=== PATIENT | female | born 1940 | race Caucasian/White ===

== ENCOUNTER 2016-08-29 18:40 | Emergency (ER) | payer OTHER ==
[~2016-08-29] VITALS: Ht 157.5 cm; Wt 96.7 kg
[~2016-08-29 18:40] MED LIST: ADVAIR 250/501 DISK IH; ADVIL,NUPRIN,M200 MG PO; Amoxicillin PO; B6 PO; CARAFATE1 GM PO; CARDIZEM CD,CA240 MG PO; CEFUROXIME250 MG PO; DICYCLOMINE HCL20 MG PO; LEVAQUIN750 MG PO; LEVOTHYROXINE; LEVOTHYROXINE50 MCG PO; LEXAPRO10 MG PO; LIPITOR40 MG PO; LOVASTATIN40 MG PO; Levothroid,Synthroid PO; MOTRIN800 MG PO; PREDNISONE10 MG PO; PRESERVISIO1 CAPSULE PO; PRESERVISION S1 EACH PO; PRESERVISION T1 EACH PO; PRILOSEC20 MG PO; PROTONIX40 MG PO; PYRIDOXINE,VIT100 MG PO; Preservision AREDS S PO; SPECTRAVITE SE1 EACH PO; SYMBICORT60 INHALAT IH; VALSARTAN80 MG PO; VENTOLIN HFA18 GM IH; Zocor PO; [UNRECOGNIZED DRUG - OTHER] PO
[2016-08-29 20:14] LABS: HEMATOCRIT 41.4 % (36.0-46.0); MCH 30.9 PG (29.0-34.0); MCHC 33.3 G/DL (30.0-36.0); MCV 92.6 FL (83-99); MEAN PLAT.VOLUME 9.6 uM^3 (9.5-12.4); PLATELET COUNT 184 K/uL (156-360); RBC DIS.WIDTH-CV 13.3 % (11.8-14.6); RED BLOOD COUNT 4.47 M/uL (3.80-5.20); WHITE BLOOD COUNT 8.1 K/uL (4.1-10.2)
[2016-08-29 20:39] LABS: CHLORIDE 107 mEq/L (99-109); POTASSIUM 4.7 mEq/L (3.7-5.4); SODIUM 140 mEq/L (136-147)
[2016-08-29 20:40] LABS: GLUCOSE 114 mg/dL (70-99)
[2016-08-29 20:42] LABS: ANION GAP 6 MEQ/L (2-14)
[2016-08-29 20:44] LABS: GFR ESTIMATE (CALCULATED) > 59 mL/min/
[2016-08-29 20:45] LABS: UREA NITROGEN (BUN) 21 mg/dL (9-23)
[2016-08-29] MEDS ORDERED: VICODIN 5-3001 EACH PO (21:18)
[2016-08-29] MEDS ORDERED: KEFLEX500 MG PO (21:18)
[2016-08-29] MEDS ORDERED: NORCO 5/3251 TABLET PO (21:20)
[2016-08-29 21:32] VITALS: BP 155/97
== END 2016-08-29 21:32 | disposition home or self-care (01) ==
LOC: EME 18:40
PROVIDERS: Emergency Medicine
DX: R04.0 Epistaxis (principal); J45.909 Unspecified asthma, uncomplicated; E78.5 Hyperlipidemia, unspecified; I10 Essential (primary) hypertension; K21.9 Gastro-esophageal reflux disease without esophagitis; E03.9 Hypothyroidism, unspecified; Z87.442 Personal history of urinary calculi; Z96.653 Presence of artificial knee joint, bilateral; Z87.891 Personal history of nicotine dependence
CPT/HCPCS: 80048; 85027; 86850; 86900; 86901; 99281; 99284

== ENCOUNTER 2016-10-03 04:36 | Emergency (ER) | payer OTHER ==
[~2016-10-03] VITALS: Ht 157.5 cm; Wt 98.5 kg
[~2016-10-03 04:36] MED LIST changes: +KEFLEX500 MG PO; +NORCO 5/3251 TABLET PO; +VICODIN 5-3001 EACH PO
[2016-10-03 05:09] LABS: HEMATOCRIT 42.2 % (36.0-46.0); MCH 30.9 PG (29.0-34.0); MCHC 33.4 G/DL (30.0-36.0); MCV 92.5 FL (83-99); MEAN PLAT.VOLUME 9.3 uM^3 (9.5-12.4); PLATELET COUNT 169 K/uL (156-360); RBC DIS.WIDTH-CV 13.3 % (11.8-14.6); RBC DIS.WIDTH-SD 43.6 % (39-53); RED BLOOD COUNT 4.56 M/uL (3.80-5.20)
[2016-10-03] MEDS ORDERED: AMOXICILLIN500 MG PO (05:28)
[2016-10-03 06:03] VITALS: BP 142/85
== END 2016-10-03 06:06 | disposition home or self-care (01) ==
LOC: EME 04:36
PROVIDERS: Physician Assistant
PROC: 2Y41X5Z Packing of Nasal Region using Packing Material (ICD-10-PCS; principal; 2016-10-03)
DX: R04.0 Epistaxis (principal); J45.909 Unspecified asthma, uncomplicated; E78.5 Hyperlipidemia, unspecified; I10 Essential (primary) hypertension; K21.9 Gastro-esophageal reflux disease without esophagitis; Z87.442 Personal history of urinary calculi; E03.9 Hypothyroidism, unspecified; Z96.653 Presence of artificial knee joint, bilateral; Z87.891 Personal history of nicotine dependence
CPT/HCPCS: 85027; 99281; 99284

== ENCOUNTER 2016-10-07 14:15 | Emergency (ER) | payer OTHER ==
[~2016-10-07] VITALS: Ht 157.5 cm; Wt 97.0 kg
[~2016-10-07 14:15] MED LIST changes: +AMOXICILLIN500 MG PO
[2016-10-07 15:16] LABS: HEMATOCRIT 42.4 % (36.0-46.0); MCH 30.8 PG (29.0-34.0); MCHC 32.8 G/DL (30.0-36.0); MCV 93.8 FL (83-99); MEAN PLAT.VOLUME 9.4 uM^3 (9.5-12.4); PLATELET COUNT 197 K/uL (156-360); RBC DIS.WIDTH-CV 13.2 % (11.8-14.6); RBC DIS.WIDTH-SD 45.2 % (39-53); RED BLOOD COUNT 4.52 M/uL (3.80-5.20); WHITE BLOOD COUNT 9.3 K/uL (4.1-10.2)
[2016-10-07 15:31] LABS: CHLORIDE 107 mEq/L (99-109); POTASSIUM 4.3 mEq/L (3.7-5.4); SODIUM 142 mEq/L (136-147)
[2016-10-07 15:32] LABS: GLUCOSE 125 mg/dL (70-99)
[2016-10-07 15:34] LABS: ANION GAP 10 MEQ/L (2-14)
[2016-10-07 15:36] LABS: GFR ESTIMATE (CALCULATED) > 59 mL/min/
[2016-10-07 15:37] LABS: UREA NITROGEN (BUN) 22 mg/dL (9-23)
[2016-10-07 15:39] LABS: TROP-I INTERPRETATION NEGATIVE; TROPONIN-I < 0.01 ng/mL (0.0-0.30)
[2016-10-07 17:50] LABS: TROP-I INTERPRETATION NEGATIVE; TROPONIN-I < 0.01 ng/mL (0.0-0.30)
[2016-10-07 18:51] VITALS: BP 140/96
== END 2016-10-07 18:53 | disposition home or self-care (01) ==
LOC: EME → EDBD 14:15 → EDSEX 14:15 → EME 14:15
PROVIDERS: Emergency Medicine
DX: R07.9 Chest pain, unspecified (principal); R53.83 Other fatigue; Z77.22 Contact with and (suspected) exposure to environmental tobacco smoke (acute) (chronic); Z82.49 Family history of ischemic heart disease and other diseases of the circulatory system; I10 Essential (primary) hypertension; E78.5 Hyperlipidemia, unspecified; E03.9 Hypothyroidism, unspecified; J45.909 Unspecified asthma, uncomplicated; Z87.891 Personal history of nicotine dependence
CPT/HCPCS: 71020; 80048; 84484; 85027; 93005; 99281; 99285

== ENCOUNTER 2017-03-07 13:45 | Emergency (ER) | payer OTHER ==
[~2017-03-07] VITALS: Ht 157.5 cm; Wt 105.4 kg
[2017-03-07] MEDS ORDERED: HYDROCHLOROTHIA25 MG PO (14:40)
[2017-03-07] MEDS ORDERED: VALSARTAN160 MG PO (14:40)
[2017-03-07] MEDS ORDERED: ATORVASTATIN CA40 MG PO (14:41)
[2017-03-07] MEDS ORDERED: PREDNISONE1 MG PO (14:42)
[2017-03-07 16:56] VITALS: BP 134/76
== END 2017-03-07 16:57 | disposition home or self-care (01) ==
LOC: EME 13:45
DX: M16.0 Bilateral primary osteoarthritis of hip (principal); K21.9 Gastro-esophageal reflux disease without esophagitis; I10 Essential (primary) hypertension; E78.5 Hyperlipidemia, unspecified; J45.909 Unspecified asthma, uncomplicated; Z96.653 Presence of artificial knee joint, bilateral; Z87.442 Personal history of urinary calculi; Z87.891 Personal history of nicotine dependence
CPT/HCPCS: 73502; 99281; 99284

== ENCOUNTER 2017-08-03 11:04 | Emergency (ER) | payer OTHER ==
[~2017-08-03] VITALS: Ht 157.5 cm; Wt 106.3 kg
[~2017-08-03 11:04] MED LIST changes: +ATORVASTATIN CA40 MG PO; +HYDROCHLOROTHIA25 MG PO; +PREDNISONE1 MG PO; +VALSARTAN160 MG PO
[2017-08-03 12:42] LABS: BASOPHIL (%) 0.3 % (0-1); EOSINOPHIL COUNT 0.1 K/uL (0-0.3); HEMATOCRIT 40.7 % (36.0-46.0); HEMOGLOBIN 13.8 G/DL (11.9-15.5); IMMATURE GRANULOCYTE (%) 0.3 % (0.0-0.7); LYMPHOCYTE (%) 14.1 % (15-42); LYMPHOCYTE COUNT 0.9 K/uL (1.0-2.8); MCH 31.5 PG (29.0-34.0); MCHC 33.9 G/DL (30.0-36.0); MCV 92.9 FL (83-99); MONOCYTE (%) 8.5 % (3-12); MONOCYTE COUNT 0.5 K/uL (0-0.8); NEUTROPHIL (%) 75.8 % (45-76); NEUTROPHIL COUNT 4.6 K/uL (1.8-6.4); PLATELET COUNT 166 K/uL (156-360); RBC DIS.WIDTH-CV 12.5 % (11.8-14.6); RBC DIS.WIDTH-SD 42.7 % (39-53); RED BLOOD COUNT 4.38 M/uL (3.80-5.20); WHITE BLOOD COUNT 6.1 K/uL (4.1-10.2)
[2017-08-03 12:51] LABS: CHLORIDE 104 mEq/L (99-109); SODIUM 141 mEq/L (136-147)
[2017-08-03 12:53] LABS: GLUCOSE 112 mg/dL (70-99)
[2017-08-03 12:54] LABS: PTT 28.4 SEC (25-37)
[2017-08-03 12:57] LABS: CREATININE 0.9 mg/dL (0.6-1.3); GFR ESTIMATE (CALCULATED) > 59 mL/min/; UREA NITROGEN (BUN) 17 mg/dL (9-23)
[2017-08-03] MEDS ORDERED: OCEAN GEL14 GM BOTH NARES (13:07)
[2017-08-03] MEDS ORDERED: KEFLEX500 MG PO (13:07)
[2017-08-03 13:41] VITALS: BP 132/89
== END 2017-08-03 13:41 | disposition home or self-care (01) ==
LOC: EME 11:04
PROVIDERS: Nurse Practitioner Family
PROC: 0W3Q7ZZ Control Bleeding in Respiratory Tract, Via Natural or Artificial Opening (ICD-10-PCS; principal; 2017-08-03)
DX: R04.0 Epistaxis (principal); Z87.442 Personal history of urinary calculi; E03.9 Hypothyroidism, unspecified; J45.909 Unspecified asthma, uncomplicated; Z96.653 Presence of artificial knee joint, bilateral; I10 Essential (primary) hypertension; Z88.5 Allergy status to narcotic agent; Z88.8 Allergy status to other drugs, medicaments and biological substances
CPT/HCPCS: 80048; 85025; 85610; 85730; 99281; 99284

== ENCOUNTER 2017-09-10 02:57 | Emergency (ER) | payer OTHER ==
[~2017-09-10] VITALS: Ht 157.5 cm; Wt 102.8 kg
[~2017-09-10 02:57] MED LIST changes: +OCEAN GEL14 GM BOTH NARES
[2017-09-10 03:43] LABS: HEMATOCRIT 38.5 % (36.0-46.0); HEMOGLOBIN 13.2 G/DL (11.9-15.5); MCH 31.4 PG (29.0-34.0); MCHC 34.3 G/DL (30.0-36.0); MCV 91.7 FL (83-99); PLATELET COUNT 173 K/uL (156-360); RBC DIS.WIDTH-CV 12.7 % (11.8-14.6); RBC DIS.WIDTH-SD 42.5 % (39-53); WHITE BLOOD COUNT 7.2 K/uL (4.1-10.2)
[2017-09-10 03:53] LABS: ALBUMIN 3.9 g/dL (3.2-4.8)
[2017-09-10 03:54] LABS: CHLORIDE 102 mEq/L (99-109); POTASSIUM 3.9 mEq/L (3.7-5.4); SODIUM 139 mEq/L (136-147)
[2017-09-10 03:56] LABS: GLUCOSE 164 mg/dL (70-99); TOTAL PROTEIN 6.1 g/dL (6.4-8.3)
[2017-09-10 03:58] LABS: TOTAL BILIRUBIN 0.5 mg/dL (0.0-1.0)
[2017-09-10 03:59] LABS: ALKALINE PHOSPHATASE 74 IU/L (3-129)
[2017-09-10 04:00] LABS: CREATININE 1.1 mg/dL (0.6-1.3); GFR ESTIMATE (CALCULATED) 51 mL/min/
[2017-09-10 04:01] LABS: AST (GOT) 16 IU/L (2-34); DIRECT BILIRUBIN 0.2 mg/dL (0.0-0.3); UREA NITROGEN (BUN) 23 mg/dL (9-23)
[2017-09-10 04:03] LABS: ALT (GPT) 14 IU/L (3-49); LIPASE 34 U/L (1.0-51.0)
[2017-09-10 04:24] LABS: APPEARANCE SL.HAZY ((CLEAR)); BILIRUBIN NEGATIVE; BLOOD LARGE; COLOR YELLOW ((YELLOW)); GLUCOSE (STRIP) NEGATIVE; KETONES NEGATIVE; LEUKOCYTES MODERATE; NITRITE POSITIVE; PROTEIN (STRIP) 30; SPECIFIC GRAVITY 1.021 (1.000-1.030); UROBILINOGEN 0.2 MG/DL (0.2-1.0)
[2017-09-10 04:31] LABS: BACTERIA 2+ /HPF; EPITHELIAL CELLS 1+ /HPF; MUCUS 1+ /LPF; RED BLOOD CELLS TNTC /HPF (0-5); UCUL ADDED? YES; WHITE BLOOD CELLS 20-30 /HPF (0-5)
[2017-09-10] MEDS ORDERED: ZOFRAN4 MG PO (04:42)
[2017-09-10] MEDS ORDERED: DILAUDID2 MG PO (04:42)
[2017-09-10] MEDS ORDERED: KEFLEX500 MG PO (04:42)
[2017-09-10 04:55] VITALS: BP 112/72
== END 2017-09-10 04:58 | disposition home or self-care (01) ==
LOC: EME 02:57
PROVIDERS: Emergency Medicine
DX: N13.2 Hydronephrosis with renal and ureteral calculous obstruction (principal); N39.0 Urinary tract infection, site not specified; B96.20 Unspecified Escherichia coli [E. coli] as the cause of diseases classified elsewhere; J45.909 Unspecified asthma, uncomplicated; E03.9 Hypothyroidism, unspecified; M19.90 Unspecified osteoarthritis, unspecified site; K21.9 Gastro-esophageal reflux disease without esophagitis; Z87.442 Personal history of urinary calculi; Z87.19 Personal history of other diseases of the digestive system; Z96.653 Presence of artificial knee joint, bilateral; Z90.710 Acquired absence of both cervix and uterus; Z88.5 Allergy status to narcotic agent; Z88.8 Allergy status to other drugs, medicaments and biological substances
CPT/HCPCS: 74176; 80048; 80076; 81003; 83690; 85027; 87077; 87086 GA; 87186; 99281; 99284; J1885; J2405; J7030

== ENCOUNTER → 2017-09-20 | Outpatient (CLI) | payer MEDICARE, OTHER ==
[~2017-09-20] MED LIST changes: +DILAUDID2 MG PO; +FLOMAX0.4 MG PO; +ULTRAM50 MG PO; +ZOFRAN ODT4 MG PO; +ZOFRAN4 MG PO
== END | disposition home or self-care (01) ==
LOC: CDC 10:23
DX: Z01.810 Encounter for preprocedural cardiovascular examination (principal); R94.31 Abnormal electrocardiogram [ECG] [EKG]
CPT/HCPCS: 93000

== ENCOUNTER 2017-09-23 03:23 | Emergency (ER) | payer OTHER ==
[~2017-09-23] VITALS: Ht 157.5 cm; Wt 106.0 kg
[~2017-09-23 03:23] MED LIST changes: -FLOMAX0.4 MG PO; -ULTRAM50 MG PO; -ZOFRAN ODT4 MG PO
[2017-09-23 04:37] LABS: APPEARANCE CLEAR ((CLEAR)); BILIRUBIN NEGATIVE; BLOOD LARGE; COLOR YELLOW ((YELLOW)); GLUCOSE (STRIP) NEGATIVE; KETONES NEGATIVE; LEUKOCYTES NEGATIVE; NITRITE NEGATIVE; PROTEIN (STRIP) NEGATIVE; SPECIFIC GRAVITY 1.015 (1.000-1.030); UROBILINOGEN 0.2 MG/DL (0.2-1.0)
[2017-09-23 04:49] LABS: BACTERIA NONE SEEN /HPF; EPITHELIAL CELLS RARE /HPF; HYALINE CASTS 0-5 /LPF; MUCUS TRACE /LPF; RED BLOOD CELLS 40-50 /HPF (0-5); UCUL ADDED? NO; WHITE BLOOD CELLS 0-5 /HPF (0-5)
[2017-09-23 05:01] LABS: HEMATOCRIT 37.3 % (36.0-46.0); HEMOGLOBIN 12.8 G/DL (11.9-15.5); MCH 31.6 PG (29.0-34.0); MCHC 34.3 G/DL (30.0-36.0); MCV 92.1 FL (83-99); PLATELET COUNT 165 K/uL (156-360); RBC DIS.WIDTH-CV 12.4 % (11.8-14.6); RED BLOOD COUNT 4.05 M/uL (3.80-5.20)
[2017-09-23 05:12] LABS: ALBUMIN 3.9 g/dL (3.2-4.8)
[2017-09-23 05:13] LABS: CHLORIDE 106 mEq/L (99-109); POTASSIUM 3.7 mEq/L (3.7-5.4); SODIUM 140 mEq/L (136-147)
[2017-09-23 05:15] LABS: GLUCOSE 122 mg/dL (70-99); TOTAL PROTEIN 6.1 g/dL (6.4-8.3)
[2017-09-23 05:17] LABS: TOTAL BILIRUBIN 0.8 mg/dL (0.0-1.0)
[2017-09-23 05:18] LABS: ALKALINE PHOSPHATASE 71 IU/L (3-129)
[2017-09-23 05:19] LABS: CREATININE 1.2 mg/dL (0.6-1.3); GFR ESTIMATE (CALCULATED) 47 mL/min/
[2017-09-23 05:20] LABS: AST (GOT) 16 IU/L (2-34); UREA NITROGEN (BUN) 20 mg/dL (9-23)
[2017-09-23 05:21] LABS: ALT (GPT) 14 IU/L (3-49)
[2017-09-23] MEDS ORDERED: FLOMAX0.4 MG PO (06:39)
[2017-09-23] MEDS ORDERED: ZOFRAN ODT4 MG PO (06:41)
[2017-09-23] MEDS ORDERED: ULTRAM50 MG PO (07:07)
[2017-09-23 08:40] VITALS: BP 113/53
== END 2017-09-23 08:53 | disposition home or self-care (01) ==
LOC: EME 03:23
PROVIDERS: Physician Assistant
DX: N13.2 Hydronephrosis with renal and ureteral calculous obstruction (principal); Z87.442 Personal history of urinary calculi; Z98.890 Other specified postprocedural states; E03.9 Hypothyroidism, unspecified; J45.909 Unspecified asthma, uncomplicated; Z96.653 Presence of artificial knee joint, bilateral; Z88.5 Allergy status to narcotic agent; Z88.8 Allergy status to other drugs, medicaments and biological substances
CPT/HCPCS: 74176; 80053; 81003; 85027; 99281; 99285; J1885; J2405; J3010; J7040; J7050